=== PATIENT | male | born 1975 | race Caucasian/White ===

== ENCOUNTER 2017-05-16 18:28 | Emergency (ER) | payer OTHER ==
[~2017-05-16] VITALS: Ht 180.3 cm; Wt 129.1 kg
[2017-05-16 18:32] VITALS: TEMP 36.9; Ht 180.3 cm; Wt 129.1 kg
[2017-05-16] MEDS ORDERED: KETOROLAC TROMETHAMINE 60 MG/2 ML VIAL IM STA (19:01)
[2017-05-16] MEDS ORDERED: MoRPHine SULFATE 10 MG/ML CARP/VIAL IM STA (19:01)
--- NOTE | 2017-05-16 19:14 | EMERGENCY ROOM VISIT NOTE ---
History First contact with patient: 18:35 Chief Complaint: BACK PAIN Stated Complaint: SEVERE BACK PAIN History of Present Illness The patient is a 42 year old male who presents to the Emergency Room with complaints of low back pain. The patient reports that this morning, he bent over to pick something up and felt his back "tweak." He states that the pain was initially mild, but worsened throughout the next few hours. He took Aleve and ibuprofen without relief. He states that he was able to fall asleep and he woke up the pain had improved. He states that he bent over again and had increased pain. He now rates his discomfort an 8/10. He states that it radiates across the low back and into both hips. He denies any radiation down the legs or into the abdomen. He denies nausea/vomiting. He denies bowel/ bladder incontinence, saddle anesthesia, numbness or weakness of the lower extremities. He denies any history of back problems. Review of Systems A complete 10 point review of systems was reviewed with the patient with pertinent positives and negatives as per history of present illness. All else were negative. Social History Smoking Status: Never Smoker Current/Historical Medications Scheduled Cetirizine (Zyrtec), 10 MG PO DAILY Cholecalciferol (Vitamin D3), 2,000 INTER.UNIT PO DAILY Cyclobenzaprine Hcl (Flexeril), 10 MG PO TID Desvenlafaxine Succinate Er (Pristiq), 50 MG PO DAILY Lamotrigine (Lamictal), 25 MG PO BID Lamotrigine (Lamictal), 100 MG PO BID Metformin Hcl Er (Glucophage Er), 500 MG PO BID Naproxen (Naprosyn), 500 MG PO BID Pravastatin (Pravachol ), 20 MG PO HS Risperidone (Risperdal), 0.5 MG PO HS Scheduled PRN Hydrocodone/Acetaminophen ([place] 10/325 Tab), 1 TAB PO Q4-6HRS PRN for Pain Oxycodone/Acetaminophen 5MG/325MG (Percocet 5MG/325MG), 1-2 TABS PO Q4H PRN for Pain Physical Exam Vital Signs Date Time Temp Pulse Resp B/P (MAP) Pulse Ox O2 Delivery O2 Flow Rate FiO2 05/16/17 20:55 78 18 158/88 98 Room Air 05/16/17 18:32 36.9 89 20 176/94 95 Room Air Physical Exam VITALS: Vitals are noted on the nurse's note and reviewed by myself. Vital signs stable. GENERAL: This is a 42-year-old male, in no acute distress, nondiaphoretic, well- developed well-nourished. SKIN: The skin was without rashes. HEART: Regular rate and rhythm without murmurs gallops or rubs. LUNGS: Clear to auscultation bilaterally without wheezes, rales or rhonchi. ABDOMEN: Soft, nontender to palpation. MUSCULOSKELETAL: There is no significant tenderness to the lumbar region of the back. Full range of motion of bilateral lower extremities. Strength 5/5 bilateral lower extremities.. NEURO: Patient was alert and oriented to person place and time. Normal sensation to light and sharp touch. Patellar reflexes 2+ bilaterally. Medical Decision & Procedures Medications Administered Medications (Trade) Dose Ordered Sig/Tristin Route Start Time Stop Time Status Last Admin Dose Admin Ketorolac Tromethamine (Toradol Inj) 60 mg NOW STAT IM 05/16/17 19:01 05/16/17 19:02 DC 05/16/17 19:18 60 MG Morphine Sulfate (MoRPHine SULFATE INJ) 10 mg NOW STAT IM 05/16/17 19:01 05/16/17 19:02 DC 05/16/17 19:17 10 MG Hydromorphone HCl (Dilaudid Inj) 1 mg NOW STAT IM 05/16/17 19:49 05/16/17 19:51 DC 05/16/17 20:07 1 MG Cyclobenzaprine HCl (FLEXERIL 10MG Home Pack) 1 homepack UD ONCE PO 05/16/17 20:45 05/16/17 20:46 DC 05/16/17 20:50 1 HOMEPACK ED Course The patient was evaluated as above. Patient was medicated with 60 mg Toradol IM and 10 mg morphine. Patient was reevaluated and does report some relief. He is able to walk around but does report pain with this. He requested something more for pain. He was given 1 mg Dilaudid IM. Patient was reevaluated is feeling much better and is able to walk around. He does still have a small amount of pain and expressed concern about this. The patient was reassured. Discharge instructions were reviewed with the patient. The patient verbalized understanding of my assessment and treatment plan and was discharged home in good condition. Medical Decision Differential diagnosis includes cauda equina syndrome, cord compression, disc herniation, muscle spasm, lumbar strain, epidural abscess, malignancy, transverse myelitis, urinary tract infection, colitis, diverticulitis, kidney stone, among others. The patient is a 42-year-old male who presents today complaining of lumbar back pain consistent with muscle sprain/spasms. The patient was treated here with IM pain medication and Toradol. He did have relief of pain and was able to walk around. There is nothing to suggest cauda equina syndrome, cord compression or infection. Conservative measures were discussed with the patient and his . He will be prescribed Naprosyn as well as Flexeril and Percocet. He was advised to follow-up with his PCP for further evaluation of his back pain. Based on the patient's presentation and work up, I feel the patient is stable for outpatient treatment. The patient was educated to return to the emergency department for any worsening of their current condition or new/concerning symptoms, specifically leg numbness/weakness, bowel/bladder incontinence or fevers. He will follow up with his PCP. [place] Drug Monitoring [place] Search Results: patient reviewed within database (has received narcotic rx in the past from same provider- nothing in last 30 days) Medication Reconcilliation Current Medication List: was personally reviewed by me Blood Pressure Screening Patient's blood pressure: Elevated blood pressure Blood pressure disposition: Elevated BP felt to be situational Impression Primary Impression: Lumbar back pain Departure Information Dispostion Home / Self-Care Condition GOOD Prescriptions Oxycodone/Acetaminophen 5MG/325MG (PERCOCET 5MG/325MG) Tab 1-2 TABS PO Q4H Y for Pain, #15 TAB For Initial Treatment Prov: Natty Kc PA-C 05/16/17 Cyclobenzaprine Hcl (FLEXERIL) 10 Mg Tab 10 MG PO TID for 3 Days, #9 TAB Prov: Natty Kc PA-C 05/16/17 Naproxen (Naprosyn) 500 Mg Tab 500 MG PO BID for 10 Days, #20 TAB Prov: Natty Kc PA-C 05/16/17 Referrals Rohit Dent M.D. (PCP) Patient Instructions My [facility] Additional Instructions You have been treated in the Emergency Department for Back Pain. You have received pain medicine in the emergency department which impairs your ability to operate a vehicle. It is illegal for you to drive after receiving these medicines. You have been prescribed Percocet to be used for pain control. This is a narcotic medication. You cannot drive or consume alcohol while on this medicine. This medicine should only be used for pain that cannot be controlled with okvi-irc-boreqoc pain medicines. You have been prescribed Flexeril (cyclobenzaprine) 1-2 tabs orally, three times per day. Do NOT exceed 30 mg (6 tabs) per day. Take your first dose at bedtime as it can make you drowsy. Always take all medications as prescribed. Naprosyn as prescribed. For pain control, you can use the following fgaf-ven-wmmvxic medicines (if >12 yo): - Regular strength (325mg/tab) Tylenol (acetaminophen) 2 tabs every 4-6 hours as needed. Do not exceed 12 tablets in a 24 hour period. Avoid taking more than 4 grams (4000 mg) of Tylenol per day. This includes any other sources of acetaminophen you may take on a regular basis. If this is an acute injury, ice can be applied to the area of pain for the first 3 days to help decrease pain and inflammation. After the first 3 days, a heating pad can be used over the area for continued soothing relief. You should schedule a follow-up appointment in 2-3 days with your Primary Care Provider for further evaluation and treatment of your back pain. Return to the Emergency Department if your current symptoms worsen despite treatment course outlined above, or if you develop any of the following symptoms : intractable pain despite aforementioned treatment course, loss of control of your bowel or bladder, numbness or tingling in your groin, or development of a fever.
[2017-05-16] MEDS ORDERED: HYDR-4383 PO (19:27)
[2017-05-16] MEDS ORDERED: LAMO25TA PO (19:27)
[2017-05-16] MEDS ORDERED: PRAV20TA PO (19:27)
[2017-05-16] MEDS ORDERED: METF500T5 PO (19:27)
[2017-05-16] MEDS ORDERED: LAMO100T PO (19:27)
[2017-05-16] MEDS ORDERED: CHOL2000 PO (19:27)
[2017-05-16] MEDS ORDERED: RISP0.5T9 PO (19:27)
[2017-05-16] MEDS ORDERED: DESV50TA PO (19:27)
[2017-05-16] MEDS ORDERED: CETI10TA84 PO (19:27)
[2017-05-16] MEDS ORDERED: HYDROmorphone INJ 1 MG/ML SYR IM STA (19:49)
[2017-05-16] MEDS ORDERED: NPR500 PO (20:43)
[2017-05-16] MEDS ORDERED: CYCL10TA6 PO (20:43)
[2017-05-16] MEDS ORDERED: OXYC-57 PO (20:43)
[2017-05-16] MEDS ORDERED: FLEXERIL HOME PACK 10 MG VIAL PO ONE (20:45)
[2017-05-16 20:55] VITALS: BP 158/88; PULSE 78; O2SAT 98
--- NOTE | 2017-05-18 16:11 | Pharmacy Progress Note ---
ED Pharmacist Progress Note Date of Service: May 18, 2017. Received phone call from [facility] pharmacy in [place] stating they had received 3 Rx's for this patient on 05/16/17 (Naproxen, Flexeril and Percocet). The pharmacist manager consumer (Yaneli) stated they would not be filling the Percocet for this patient due to his history of having multiple Narcotic Rx's filled at different pharmacies. They had also learned that his partner Rosa Rojas is a nurse practitioner and had been writing Rx's for Ada for this patient since February which he has been getting filled at pharmacies in [place]. I gave this information to Natty, and she gave authorization to have the Percocet Rx cancelled - I gave Yaneli [facility] verbal order to cancel the Percocet Rx.
== END 2017-05-16 20:58 | disposition home or self-care (01) ==
LOC: C.EDB 18:29 → C.EDD 20:58
DX: M54.5 Low back pain (principal); Z79.899 Other long term (current) drug therapy

== ENCOUNTER → 2017-05-22 | Outpatient (CLI) | payer OTHER ==
[~2017-05-22] MED LIST: CETI10TA84 PO; CHOL2000 PO; DESV50TA PO; HYDR-4383 PO; LAMO100T PO; LAMO25TA PO; METF500T5 PO; NPR500 PO; OXYC-57 PO; PRAV20TA PO; RISP0.5T9 PO
--- NOTE | 2017-05-23 05:36 | PAP/PSG TECHNICIAN REPORT ---
[facility] [employer] Panel Installer Polysomnogram Report Study name: None Report date: 05/23/2017 Study date: 05/22/2017 Referring Physician: Marie Lenz PA-C, PA-C Name: LOUIS MAYORGA Interpreting Physician: Abdias Chand D.O. Date of : 1975 Photovoltaic Panel Installer: SUNITA Rice. Sex: Male Age: 42 StudyType: PSG PAP Weight: 287 lbs 20 inches Height: 42 years, Height 5' 11" Neck Circum: BMI: 40.02 Medications: fluoxetine hcl 20 mg, imitrex 100 mg, lamotrigine 150 mg, metformin hcl 500 mg, metronidazole, ondansetron 4 mg, plaquenil 200 mg, pravastatin sodium 20 mg, pristiq 50 mg, risperdal, skelaxin 800 mg, Patient History PATIENT HAS HISTORY OF BIPOLAR, DIABETES, MELVI AND HYPERLIPIDEMIA. HE HAD A SLEEP STUDY DONE IN 2009 AND HAS BEEN ON CPAP TREATMENT OF 12CWP. HE IS HERE TODAY FOR AN UPDATE ON HIS PRESSURE. RM 5 Parameters Monitored NPSG: E1-M2, E2-M1, Fp1-M2, Fp2-M1, F3-M2, F4-M2, F4-M1, C3-M2, C4-M2, C4-M1, O1-M2, O2-M2, O2-M1, T3-M2, T4-M1, P3-M2, P4-M1, CHIN1, CHIN2, HR, EKG, Legs, PFLOW, SNOR, FLOW, CFLOW, Tidal Volume, THOR, ABDO, SpO2, PLTH, CPRESS, ETCO2 Wave, ETCO2, pH Sleep Architecture Sleep Stages Time at Lights Off 9:21:10 PM STAGES Time (min.) TST (%) Time at Lights On 4:46:40 AM Wake 33.5 -- Total Recording Time (TRT) 446.00 min. N1 8.0 2 Total Sleep Period (TSP) 417.0 min. N2 311.5 76 Total Sleep Time (TST) 412.0min. N3 9.5 2 Awake Time 34.0 min. REM 83.0 20 Wake after Sleep Onset 12.0 min. Sleep Efficiency (SE) 92 % Sleep Onset Latency (LANETTE) 21.5 min. Number of Stage 1 Shifts None Awakenings 7 Stage Changes 34 Number of REM periods 3 REM 83.0 20 REM Latency 102.5 min. NREM 329.0 80 Body Position Analysis Supine Right Left Side Prone Vertical Total Sleep Time (min.) 342.4 0.0 98.3 98.25 0.0 0.0 Total Sleep Time (%) 76% 0% 24% 24 0% N/A% Total Sleep Time REM (min.) 83.0 0.0 0.0 None 0.0 0.0 Total Sleep Time NREM (min.) 230.7 0.0 98.3 None 0.0 0.0 Intermittent Wake (min.) 28.7 0.0 4.8 None 0.0 0.0 Total Sleep Period (%) 76% None None None None None Arousals Myoclonus (PLM) * Events Count Index Events Count Index Spontaneous 17 2 Events Awake (PLMW) 19 34.0 Respiratory 5 0.7 Events Asleep w/ Arousal (PLMA) 12 1.7 PLM 11 2 Events Asleep w/o Arousal (PLMS) 85 12.4 Snoring 6 1 Total Asleep 97 14.1 Total 39 6 Total 116 16 Respiratory Analysis * CA OA MA CH H RERA Total Count 0 0 0 0 20 3 20 Index 0.0 0.0 0.0 0 2.9 0 3.3 Mean Duration 0.0 0.0 0.0 0.00 18.6 16.5 18.3 Longest Duration 0.0 0.0 0.0 0.00 0.0 18.6 31.4 Respiratory Event Summary Total Supine ~Supine Right Left Prone REM NREM Apneas Count 0 0 0 N/A 0 N/A 0 0 Index 0.0 0 0 N/A 0.0 N/A 0 0 Hypopneas (4% Desat) Count 20 18 2 N/A 2 N/A 3 17 Index 2.9 3.4 1 N/A 1.2 N/A 2.2 3.1 Apneas & All Hypopneas Count 20 18 2 N/A 2 N/A 3 17 Index 2.9 3 1 N/A 1 N/A 2.2 3.1 Respiratory Events (Medical Biller+All Hyp+RERA) Count 20 21 2 N/A 2 N/A 3 17 Index 3.3 4 1 N/A 1.2 N/A 2.9 3.5 Respiratory Related Arousal Count 5 21 1 N/A 1 N/A 1 4 Index 0.7 1 1 N/A 1 N/A 1 1 Snoring Analysis Supine Right Left Prone REM NREM Total Snore duration 13.1 min Snores count 394 N/A 80 N/A 37 437 474 Snore mean duration 1.7 Sec Snores index 75 N/A 49 N/A 26.7 79.7 69.0 TST with snoring (%) 3.2% Desaturation Event Summary: Minimum %SpO2 Event Count Mean/Min/Max Duration(sec.) Desaturation Index % Time In Bed > 90 25 29.9 / 4.3 / 62.5 3.6 97.7 86 - 90 1 12.5 / 12.5 / 12.5 6.3 2.2 81 - 85 0 N/A 0.0 0.1 76 - 80 0 N/A 0.0 0.0 71 - 75 0 N/A 0.0 0.0 66 - 70 0 N/A 0.0 0.0 61 - 65 0 N/A 0.0 0.0 56 - 60 0 N/A 0.0 0.0 51 - 55 0 N/A 0.0 0.0 < 50 0 N/A 0.0 0.0 Total REM NREM Awake <50% 0.0 min. 0.0 min. 0.0 min. 0.0 min. 51 - 60% 0.0 min. 0.0 min. 0.0 min. 0.0 min. 61 - 70% 0.0 min. 0.0 min. 0.0 min. 0.0 min. 71 - 80% 0.0 min. 0.0 min. 0.0 min. 0.0 min. 81 - 90% 9.8 min. 0.7 min. 9.0 min. 0.1 min. 91 - 100% 420.2 min. 82.0 min. 311.7 min. 26.5 min. Average 93 94 93 94 Minimum SpO2 81 87 81 90 Desaturation Event Index 3.5 2.2 4.2 0.0 # Desat. Events below 89% 7 1 6 N/A Time(%) with Saturation below 89% 0.5 0.0 0.4 0.0 Time(min.) with Saturation below 89% 2.1 0.2 1.9 0.0 Time (mins) REM (mins) NREM (mins) % of TST SpO2 Below 90% 19 2 N17 1.0 SpO2 Below 88% 3 0 0 0 Heart Rate Analysis Min (bpm) Max (bpm) Average (bpm) Awake 49 98 64 NREM 50 127 62 REM 49 127 58 Overall 49 127 61 Supplemental O2 Values Minimum O2 level: None Value Start Time End Time Photovoltaic Panel Installer Comments Mr. Mayorga slept in the left and supine positions. No cardiac arrhythmia noted. Leg movements noted. No bruxism noted. CPAP was initiated at +4 CMH2O and up-titrated to an optimal level of +12 CMH2O, which nearly eliminated all respiratory events and snoring. The patient brought in his own nasal mask that was used during titration Mr. Mayorga awoke to use the restroom 1 times during the night. Mr. Mayorga stated I slept as well as I do when I am in my own bed. The final report will be interpreted and signed by a sleep physician. The completed physician report will then be placed in the patient medical record. Therapy Event: Therapy (cm H20) 4 6 8 9 10 11 12 Total Time at Pressure (min.) 31.7 70.5 9.8 18.8 93.0 80.6 141.0 TST at Pressure (min.) 9.4 70.5 9.8 18.8 93.0 80.6 130.0 # Periods 1 1 1 1 1 1 1 Sleep Onset (min.) 21.3 0.0 0.0 0.0 0.0 0.0 0.0 REM Onset (min.) N/A N/A N/A 11.8 0.0 N/A 22.5 Sleep Efficiency % 29 100 100 100 100 100 92 Wakefulness (%) 70.3 0.0 0.0 0.0 0.0 0.0 7.8 Wakefulness (min.) 22.3 0.0 0.0 0.0 0.0 0.0 11.0 NREM 1 (%) 7.9 0.0 5.1 0.0 0.0 1.9 2.5 NREM 1 (min.) 2.5 0.0 0.5 0.0 0.0 1.5 3.5 NREM 2 (%) 21.8 86.5 94.9 62.9 45.1 98.1 72.0 NREM 2 (min.) 6.9 61.0 9.3 11.8 42.0 79.1 101.5 NREM 3 (%) 0.0 13.5 0.0 0.0 0.0 0.0 0.0 NREM 3 (min.) 0.0 9.5 0.0 0.0 0.0 0.0 0.0 REM (%) 0.0 0.0 0.0 37.1 54.9 0.0 17.7 REM (min.) 0.0 0.0 0.0 7.0 51.0 0.0 25.0 # Arousals 3 11 4 2 6 4 9 Arousal Index 19.1 9.4 24.6 6.4 3.9 3.0 4.2 # Snore 42 136 68 49 76 58 45 Snore Index 267.9 115.7 417.5 156.8 49.0 43.2 20.8 AHI 0.0 10.2 12.3 6.4 1.9 0.0 0.5 AHI Supine N/A 42.2 12.3 6.4 1.9 0.0 0.5 AHI Non-Supine 0.0 2.1 N/A N/A N/A 0.0 N/A NREM AHI 0.0 10.2 12.3 5.1 2.9 0.0 0.0 REM AHI N/A N/A N/A 8.6 1.2 N/A 2.4 RDI 0.0 10.2 18.4 6.4 2.6 0.7 0.5 # Obstructive 0 0 0 0 0 0 0 # Central Ap 0 0 0 0 0 0 0 # Mixed 0 0 0 0 0 0 0 # Hypopneas 0 12 2 2 3 0 1 RERAS 0 0 1 0 1 1 0 Total Respiratory Events 0 12 3 2 4 1 1 Time Below SpO2 89.00% (min.) 0.0 0.9 0.0 0.2 0.0 1.0 0.0 Mean NREM SpO2 (%) 92 92 93 92 93 93 94 Mean REM SpO2 (%) N/A N/A N/A 92 93 N/A 94 Mean Sleep SpO2 (%) 92 92 93 92 93 93 94 Min NREM SpO2 (%) 90 84 91 90 89 81 91 Min REM SpO2 (%) N/A N/A N/A 87 90 N/A 90 Position Supine (min.) 0.0 14.2 9.8 18.8 93.0 48.0 130.0 Position Non-supine (min.) 9.4 56.3 0.0 0.0 0.0 32.5 0.0 LM Index Sleep 63.8 13.6 36.8 41.6 12.9 7.4 10.2 LM Index NREM 63.8 13.6 36.8 30.5 4.3 7.4 6.9 LM Index REM N/A N/A N/A 60.4 20.0 N/A 24.0 Mean Heart Rate (bpm) 65 69 63 62 61 60 57 Min Heart Rate (bpm) 61 57 57 57 52 52 49
--- NOTE | 2017-05-25 07:52 | Sleep Study ---
Sleep Study Report Date of Service: 05/22/2017 Sleep Study Report Clinical data: The patient has a history of sleep apnea for many years. His last sleep study was done in 2009. He has been on nasal CPAP at 12 centimeters. He has gained 70 pounds since his last study. He thinks he snores through his mask. He complains of fatigue. This was an in-lab CPAP retitration study. Sleep architecture: The total sleep period was 417 minutes. The total sleep time was 412 minutes. The sleep efficiency was normal at 92 percent. Sleep latency was mildly prolonged at 21.5 minutes. Wake after sleep onset was 12 minutes. The REM latency was normal at 102.5 minutes. There were 3 REM periods during the night. Sleep consisted of stage N1 2 percent, stage N2 76 percent, stage N3 2 percent, stage REM 20 percent. Arousal data: The patient had a total of 39 arousals including 17 spontaneous arousals, 5 respiratory arousals, 11 PLM arousals, and 6 snoring arousals. The arousal index was 6. PLM data: The patient had a total of 97 periodic limb movements for a PLM index of 14.1. There were 12 arousals associated with limb movements for a PLM arousal index of 1.7. EKG: The underlying cardiac rhythm was normal sinus. The minimum heart rate was 49 beats per minute. The average heart rate was 61 beats per minute. No cardiac arrhythmia was noted. Respiratory data: Patient had a total of 20 respiratory events, all hypopneas. Hypopneas were scored according to the 4 percent desaturation rule. The mean duration of the hypopneas was 18.6 seconds. In addition he had 3 RERAs. The apnea-hypopnea index was 2.9. He was titrated up to a final pressure of 12 centimeters. At final pressure of 12 centimeters the apnea-hypopnea index was 0.5. Oximetry data: The average saturation for the night was 93 percent. The minimum saturation was 81 percent. There was only 2.1 minutes with saturations less than 89 percent. Clinical Assistant comments: The patient slept on the left and supine positions. No cardiac arrhythmia noted. Leg movements noted. No bruxism noted. CPAP was initiated at 4 centimeters and up titrated to an optimum level of 12 centimeters which nearly eliminated all respiratory events and snoring. The patient brought in his own nasal mask that was used during the titration. He awakened to use the restroom 1 time during the night. Impressions: 1. Obstructive sleep apnea-resolved with nasal CPAP at 12 centimeter Comments: Patient did well with his CPAP which was titrated to his current pressure of 12 centimeters. The sleep efficiency was normal. Sleep architecture was except a bowl. He had very few respiratory events. His sleep was well consolidated. There were some very transient desaturations which may have been movement artifact. Recommendations: 1. It is advised that the patient should continue with nasal CPAP at 12 centimeters 2. The patient should be advised of the appropriate principles of sleep hygiene , particularly having a regular sleep-wake schedule and allowing sufficient sleep time. 3. Weight loss is advised in light of the elevation of body mass index of 40.02. Copies To 1: Abdias Chand DO; Marie Lenz PA-C; Rohit Dent M.D.
== END | disposition home or self-care (01) ==
LOC: C.NEUR 21:00
PROVIDERS: ATTEND Physician Assistant
DX: G47.30 Sleep apnea, unspecified (principal)